=== PATIENT | female | born 1990 | race Two or more races ===

== ENCOUNTER 2019-05-01 03:24 | Emergency (ER) | payer MEDICAID ==
[~2019-05-01] VITALS: Ht 160 cm; Wt 88.5 kg
[~2019-05-01 03:24] MED LIST: PREN-96 OR
[2019-05-01 04:13] LABS: Basophils # (auto) 0.1 uL; Basophils % (auto) 0.5 % (0.0-2.0); Eosinophils # (auto) 0.2 uL; Eosinophils % (auto) 1.6 % (0.0-7.0); Hematocrit 40.8 % (36.0-46.0); Hemoglobin 14.2 g/dL (12.2-16.2); Lymphocytes # (auto) 2.5 uL; Lymphocytes % (auto) 23.2 % (10.0-50.0); Mean Corpuscular Hemoglobin 31.3 pg (28.0-32.0); Mean Corpuscular Hgb Conc. 34.7 g/dL (32.0-36.0); Mean Corpuscular Volume 90.2 fL (80.0-100.0); Monocytes # (auto) 0.6 uL; Neutrophils # (auto) 7.4 uL; Neutrophils % (auto) 68.7 % (37.0-80.0); Nucleated Red Blood Cells % 0.1 %; Platelet Count (auto) 280 10^3/uL (140-450); Red Blood Cells 4.52 10^6/uL (4.0-5.20); White Blood Cell 10.7 10^3/uL (4.4-10.8)
[2019-05-01 04:37] LABS: Albumin 3.8 g/dL (3.4-5.0); Calcium 8.6 mg/dL (8.5-10.1); Potassium 3.7 mmol/L (3.5-5.1)
[2019-05-01 04:40] LABS: BUN/Creatinine Ratio 15.8; Bilirubin, Total 0.4 mg/dL (0.2-1.0); Total Protein 8.2 g/dL (6.4-8.2)
[2019-05-01 04:43] LABS: Urine Bacteria FEW /hpf (None Seen); Urine Blood 2+ /uL (Negative); Urine Mucus FEW (None Seen); Urine Specific Gravity 1.026 (1.001-1.035); Urine WBC 1255 /hpf (0 - 5)
[2019-05-01 08:03] VITALS: BP 120/87
== END 2019-05-01 08:52 | disposition home or self-care (01) ==
LOC: ER 03:24
DX: O23.41 Unspecified infection of urinary tract in pregnancy, first trimester (principal); Z3A.01 Less than 8 weeks gestation of pregnancy
CPT/HCPCS: 36415; 80053; 81001; 84702; 85025

== ENCOUNTER 2019-12-14 08:07 | Observation (INO) | payer MEDICAID ==
[~2019-12-14] VITALS: Ht 160 cm; Wt 93.9 kg
== END 2019-12-14 11:54 | disposition home or self-care (01) | DRG 566 ==
LOC: LDRP 08:07
PROVIDERS: ADMIT Specialist; ATTEND Specialist
DX: O41.00X0 Oligohydramnios, unspecified trimester, not applicable or unspecified (principal); Z3A.00 Weeks of gestation of pregnancy not specified
CPT/HCPCS: 76818; G0378; 81002

== ENCOUNTER 2019-12-16 10:31 | Observation (INO) | payer MEDICAID | END 2019-12-16 11:54 | disposition home or self-care (01) | DRG 566 | LOC: LDRP 10:31 | PROVIDERS: ADMIT Obstetrics & Gynecology; ATTEND Obstetrics & Gynecology | DX: O26.899 Other specified pregnancy related conditions, unspecified trimester (principal); Z3A.00 Weeks of gestation of pregnancy not specified | CPT/HCPCS: 76818; 81002; G0378 ==

== ENCOUNTER 2019-12-19 09:31 | Observation (INO) | payer MEDICAID | END 2019-12-19 10:22 | disposition home or self-care (01) | DRG 861 | LOC: LDRP 09:31 | PROVIDERS: ADMIT Specialist; ATTEND Specialist | DX: Z34.90 Encounter for supervision of normal pregnancy, unspecified, unspecified trimester (principal) | CPT/HCPCS: 76818; 81002; G0378; 59025 ==

== ENCOUNTER 2019-12-21 10:00 | Observation (INO) | payer MEDICAID ==
[2019-12-21 11:13] LABS: Basophils # (auto) 0.1 10 ^3/uL (0-0.2); Basophils % (auto) 0.6 % (0.0-2.0); Eosinophils # (auto) 0.1 10 ^3/uL (0-0.8); Eosinophils % (auto) 0.9 % (0.0-7.0); Hematocrit 41.6 % (36.0-46.0); Hemoglobin 13.6 g/dL (12.2-16.2); Lymphocytes # (auto) 1.8 10 ^3/uL (0.4-5.4); Lymphocytes % (auto) 19.3 % (10.0-50.0); Mean Corpuscular Hemoglobin 29.6 pg (28.0-32.0); Mean Corpuscular Hgb Conc. 32.6 g/dL (32.0-36.0); Mean Corpuscular Volume 90.8 fL (80.0-100.0); Monocytes # (auto) 0.7 10 ^3/uL (0-1.3); Monocytes % (auto) 7.1 % (0.0-12.0); Neutrophils # (auto) 6.7 10 ^3/uL (1.6-8.6); Neutrophils % (auto) 72.1 % (37.0-80.0); Platelet Count (auto) 240 10^3/uL (140-450); Red Blood Cells 4.58 10^6/uL (4.0-5.20); White Blood Cell 9.3 10^3/uL (4.4-10.8)
[2019-12-22 04:10] LABS: RPR Non Reactive (Non Reactive)
== END 2019-12-21 11:10 | disposition home or self-care (01) | DRG 566 ==
LOC: LDRP 10:00
PROVIDERS: ADMIT Obstetrics & Gynecology; ATTEND Obstetrics & Gynecology
DX: O26.893 Other specified pregnancy related conditions, third trimester (principal); Z3A.38 38 weeks gestation of pregnancy
CPT/HCPCS: 36415; 76818; 81002; 85025; 86592; G0378

== ENCOUNTER 2019-12-27 09:51 | Observation (INO) | payer MEDICAID | END 2019-12-27 11:12 | disposition home or self-care (01) | DRG 566 | LOC: LDRP 09:51 | PROVIDERS: ADMIT Specialist; ATTEND Specialist | DX: O41.03X0 Oligohydramnios, third trimester, not applicable or unspecified (principal); O88.113 Amniotic fluid embolism in pregnancy, third trimester; Z3A.39 39 weeks gestation of pregnancy | CPT/HCPCS: 76818; 81002; G0378; 59025 ==

== ENCOUNTER 2019-12-30 04:10 | Inpatient (IN) | payer MEDICAID ==
[~2019-12-30] VITALS: Ht 160 cm; Wt 93.4 kg
[2019-12-30] VITALS (13 sets, daily range): BP systolic 103–127; BP diastolic 64–77
[2019-12-30] MEDS ORDERED: LACTATED RINGER'S 1,000 ML IV ONE (04:30)
[2019-12-30 04:58] LABS: Basophils # (auto) 0.1 10 ^3/uL (0-0.2); Basophils % (auto) 0.6 % (0.0-2.0); Eosinophils # (auto) 0.1 10 ^3/uL (0-0.8); Eosinophils % (auto) 0.8 % (0.0-7.0); Hematocrit 40.9 % (36.0-46.0); Hemoglobin 13.8 g/dL (12.2-16.2); Lymphocytes # (auto) 2.1 10 ^3/uL (0.4-5.4); Mean Corpuscular Hemoglobin 30.7 pg (28.0-32.0); Mean Corpuscular Hgb Conc. 33.8 g/dL (32.0-36.0); Mean Corpuscular Volume 90.6 fL (80.0-100.0); Monocytes # (auto) 0.6 10 ^3/uL (0-1.3); Monocytes % (auto) 6.4 % (0.0-12.0); Neutrophils % (auto) 71.2 % (37.0-80.0); Nucleated Red Blood Cells % 0.1 %; Platelet Count (auto) 239 10^3/uL (140-450); Red Blood Cells 4.51 10^6/uL (4.0-5.20); Red Cell Distribution Width 15.2 % (11.8-14.3); White Blood Cell 9.8 10^3/uL (4.4-10.8)
[2019-12-30 05:06] LABS: Urine Amorphous Crystal FEW /hpf (None Seen); Urine Bacteria FEW /hpf (None Seen); Urine Blood Negative /uL (Negative); Urine Specific Gravity 1.017 (1.001-1.035); Urine WBC 8 /hpf (0 - 5)
[2019-12-30 05:14] LABS: INR 0.97 (0.9-1.15)
[2019-12-30 05:15] LABS: Albumin 2.7 g/dL (3.4-5.0); Calcium 8.9 mg/dL (8.5-10.1); Potassium 3.8 mmol/L (3.5-5.1)
[2019-12-30 05:17] LABS: Alcohol, Urine < 3.0 mg/dL (0-5); Amphetamine Screen, Urine NEGATIVE (NEGATIVE); Barbiturate Scree,Urine NEGATIVE (NEGATIVE); Benzodiazephine Screen, Urine NEGATIVE (NEGATIVE); Cannabinoid Screen, Urine NEGATIVE (NEGATIVE); Cocaine Screen, Urine NEGATIVE (NEGATIVE); Opiate Scree,Urine NEGATIVE (NEGATIVE); Phencyclidine Screen, Urine NEGATIVE (NEGATIVE)
[2019-12-30 05:19] LABS: BUN/Creatinine Ratio 20.3; Bilirubin, Total 0.4 mg/dL (0.2-1.0); Total Protein 7.2 g/dL (6.4-8.2)
[2019-12-30] MEDS ORDERED: SODIUM CHLORIDE LOCK 10 ML ONE (06:50)
[2019-12-30] MEDS ORDERED: MIDAZOLAM HCL 1MG/1ML-2 ML VIAL ONE (06:50)
[2019-12-30] MEDS ORDERED: ONDANSETRON HCL 4 MG/2 ML VIAL ONE (06:50)
[2019-12-30] MEDS ORDERED: BUPIVACAINE/DEXTROSE MPF 0.75% 2 ML AMP IT ONE (06:50)
[2019-12-30] MEDS ORDERED: ceFAZolin 1GM VL ONE (06:50)
[2019-12-30] MEDS ORDERED: EPINEPHrine HCL 1 MG/1 ML AMP ONE (06:50)
[2019-12-30] MEDS ORDERED: oxyTOCIN 10 UNIT/ML 10ML VIAL ONE (06:50)
[2019-12-30] MEDS ORDERED: fentaNYL CITRATE 100 MCG/2 ML VL ONE (06:50)
[2019-12-30] MEDS ORDERED: MORPHINE SULF(PF) 0.5MG/ML 10ML VIAL ONE (06:50)
[2019-12-30] MEDS ORDERED: TETRACAINE 1% INJ 2 ML VIAL IJ ONE (06:54)
[2019-12-30] MEDS ORDERED: SUCCINYLCHOLINE CHLORIDE 20 MG/ML 10ML VIAL IV ONE (06:54)
[2019-12-30] MEDS ORDERED: ceFAZolin 1GM/50ML 50 ML IV SCH (08:15)
[2019-12-30] MEDS ORDERED: ONDANSETRON HCL 4 MG/2 ML VIAL IV PRN (08:15)
[2019-12-30] MEDS ORDERED: METOCLOPRAMIDE HCL 5MG/ml INJ 2ml VIAL IV PRN (08:45)
[2019-12-30] MEDS ORDERED: KETOROLAC TROMETH 15 mg/ml 1ML VL IV ONE (08:45)
[2019-12-30] MEDS ORDERED: NALOXONE HCL 0.4 MG/ML VIAL IV PRN (08:45)
[2019-12-30] MEDS ORDERED: diphenhdrAMINE HCL 50 MG/1 ML VL IV PRN (08:45)
[2019-12-30] MEDS ORDERED: MORPHINE SULFATE 4 MG/ML SYR/VIAL IV PRN (08:45)
[2019-12-30] MEDS ORDERED: HYDROmorphone HCL 2 MG/ML VL IV PRN (08:45)
[2019-12-30] MEDS ORDERED: fentaNYL CITRATE 100 MCG/2 ML VL IV PRN (08:45)
--- NOTE | 2019-12-30 09:00 | NUR ---
Post Op for LDRP: Received patient from PACU via bed to room 107b. Patient A/A/Ox4, abdominal binder and bilateral SCD's are in place, IV fluids placed on pump and infusing per order, incisional site dressing small dime size drainage/dry/intact and Cherry Catheter to gravity draining clear yellow urine. Incentive Spirometer at bedside and instruction on proper use with return demonstration done by patient. Information Handout regarding, , incentive spirometer and ambulation at bedside.
[2019-12-30] MEDS ORDERED: ACETAMINOPHEN IV 1000 MG/100ML (10MG/ML) IV ONE ×2 (10:45→22:30)
[2019-12-30] MEDS: LACT. RINGERS/OXYTOCIN 20UNITS 1,000 ML IV SCH ×3 (10:50→21:35)
--- NOTE | 2019-12-30 11:35 | NUR ---
Pericare given. Lochia light, fundus fm 1 below umbilicus
--- NOTE | 2019-12-30 12:00 | NUR ---
Ofrimev had stopped infusing, will re-evaluate in 30mins.
[2019-12-30] MEDS: LACTATED RINGER'S 1,000 ML IV SCH ×3 (12:10→21:42)
[2019-12-30] MEDS: MORPHINE SULFATE 4 MG/ML SYR/VIAL IV PRN ×2 (15:20→20:54)
[2019-12-30] MEDS: ceFAZolin 1GM/50ML 50 ML IV SCH (16:03)
--- NOTE | 2019-12-30 18:55 | NUR ---
Teaching: Reviewed information in [employer] booklet with patient. Discussed benefits of and risks associated with not . Discussed different positions, proper latch, feeding cues, and baby-led . Provided information of medication side effects related to . All questions and concerns addressed at this time. Patient verbalized understanding of information. Bottle-feeding Education: Patient encouraged to breastfeed. Benefits of and the risk of providing formula to was discussed. Patient verbalized understanding of the benefits and is aware of risk and insists on bottle-feeding. Formula provided and instruction on formula preperation from the [employer] booklet reviewed with patient.
[2019-12-30 19:48] LABS: Basophils # (auto) 0 10 ^3/uL (0-0.2); Basophils % (auto) 0.4 % (0.0-2.0); Eosinophils # (auto) 0.1 10 ^3/uL (0-0.8); Eosinophils % (auto) 0.9 % (0.0-7.0); Hematocrit 38.1 % (36.0-46.0); Hemoglobin 12.6 g/dL (12.2-16.2); Lymphocytes # (auto) 1.9 10 ^3/uL (0.4-5.4); Lymphocytes % (auto) 20.3 % (10.0-50.0); Mean Corpuscular Hemoglobin 30.2 pg (28.0-32.0); Mean Corpuscular Hgb Conc. 33.1 g/dL (32.0-36.0); Mean Corpuscular Volume 91.3 fL (80.0-100.0); Monocytes # (auto) 0.7 10 ^3/uL (0-1.3); Monocytes % (auto) 7.3 % (0.0-12.0); Neutrophils # (auto) 6.8 10 ^3/uL (1.6-8.6); Neutrophils % (auto) 71.1 % (37.0-80.0); Platelet Count (auto) 207 10^3/uL (140-450); Red Blood Cells 4.17 10^6/uL (4.0-5.20); White Blood Cell 9.5 10^3/uL (4.4-10.8)
--- NOTE | 2019-12-30 23:20 | NUR ---
Ambulation: Patient OOB with standby assistance by RN. Pericare provided, clean gown provided, and bed linen changed. Patient ambulated in the hallway to LDRP room 6 and back with steady gait while pushing open crib. Patient placed back in bed, ICDs reapplied, no distress noted.
[2019-12-31] MEDS: ceFAZolin 1GM/50ML 50 ML IV SCH ×2 (00:24→08:20)
[2019-12-31 03:15] VITALS: BP 115/74
[2019-12-31] MEDS: LACTATED RINGER'S 1,000 ML IV SCH (04:10)
[2019-12-31] MEDS: LACT. RINGERS/OXYTOCIN 20UNITS 1,000 ML IV SCH (04:15)
[2019-12-31 05:07] LABS: RPR Non Reactive (Non Reactive)
--- NOTE | 2019-12-31 05:20 | NUR ---
Hyatt catheter dc'd Order to discontinue hyatt catheter. Hyatt dc'd with clean technique following deflation of balloon. Patient tolerated well with no complaints of pain. Pericare performed. Peripad changed.
[2019-12-31] MEDS: MORPHINE SULFATE 4 MG/ML SYR/VIAL IV PRN (05:22)
[2019-12-31 07:00] VITALS: BP 130/78
--- NOTE | 2019-12-31 07:15 | NUR ---
Assessment complete. Educated on SCDs, IS, need to ambulate in hallway and sit in the chair. Encouraged to cough, deep breath to prevent pneumonia as well as use IS 10x hour. Educated SCD reduce the risk of blood clots and need to worn whenever in bed, need to turn side to side to reduce skin breakdown. Updated on plan of care, pain management. Verbalized understanding. Addendum: 12/31/19 at 0748 by MAURY CONTI RN Amended: Links added.
--- NOTE | 2019-12-31 08:00 | NUR ---
Dr Lizama made rounds with RN. Updated on patient status, vitals. Verbalized understanding. Received orders to start post op day 1 order set.
[2019-12-31] MEDS ORDERED: BISACODYL 10 MG RECT SUPP PR PRN (08:15)
[2019-12-31] MEDS ORDERED: HYDROcodone-ACET 5/325MG TAB PO PRN (08:15)
[2019-12-31] MEDS: HYDROcodone-ACET 5/325MG TAB PO PRN ×3 (08:20→21:26)
[2019-12-31] MEDS: IBUPROFEN 800 MG TAB PO PRN ×2 (09:24→19:33)
[2019-12-31] MEDS: DOCUSATE SOD 100 MG CAP PO SCH ×2 (09:24→21:25)
[2019-12-31] MEDS: DOCUSATE CALCIUM 240 MG CAP PO SCH (09:25)
[2019-12-31 09:36] LABS: Basophils # (auto) 0 10 ^3/uL (0-0.2); Basophils % (auto) 0.3 % (0.0-2.0); Eosinophils # (auto) 0.1 10 ^3/uL (0-0.8); Eosinophils % (auto) 0.8 % (0.0-7.0); Hematocrit 42.7 % (36.0-46.0); Hemoglobin 14.3 g/dL (12.2-16.2); Lymphocytes # (auto) 0.9 10 ^3/uL (0.4-5.4); Lymphocytes % (auto) 11.7 % (10.0-50.0); Mean Corpuscular Hemoglobin 30.6 pg (28.0-32.0); Mean Corpuscular Hgb Conc. 33.4 g/dL (32.0-36.0); Mean Corpuscular Volume 91.6 fL (80.0-100.0); Monocytes # (auto) 0.5 10 ^3/uL (0-1.3); Monocytes % (auto) 6.6 % (0.0-12.0); Neutrophils # (auto) 6.3 10 ^3/uL (1.6-8.6); Neutrophils % (auto) 80.6 % (37.0-80.0); Platelet Count (auto) 245 10^3/uL (140-450); Red Blood Cells 4.66 10^6/uL (4.0-5.20); Red Cell Distribution Width 14.8 % (11.8-14.3); White Blood Cell 7.9 10^3/uL (4.4-10.8)
--- NOTE | 2019-12-31 10:00 | NUR ---
Pt ambulated to restroom with steady gait. Void yellow fluid without difficulty. Pericare performed independently. Scant bleeding noted, no clots seen.
--- NOTE | 2019-12-31 10:35 | NUR ---
IV removal Patient stated IV site was painful, noted site is puffy. IV DC'd with sterile technique, catheter fully intact. Pressure dressing applied to site. Patient tolerated procedure well. Addendum: 12/31/19 at 1226 by MAURY CONTI RN Amended: Links added.
[2019-12-31 11:00] VITALS: BP 114/67
[2019-12-31] MEDS: SIMETHICONE 80 MG CHEWABLE TABLET PO SCH ×2 (12:29→17:28)
[2019-12-31 15:00] VITALS: BP 111/63
--- NOTE | 2019-12-31 18:15 | NUR ---
SBAR to Phil Coley RN.
[2019-12-31 19:00] VITALS: BP 136/84
[2019-12-31 23:00] VITALS: BP 137/94
[2020-01-01 03:00] VITALS: BP 119/87
[2020-01-01] MEDS: HYDROcodone-ACET 5/325MG TAB PO PRN (06:32)
[2020-01-01 06:56] VITALS: BP 118/72
[2020-01-01] MEDS: DOCUSATE SOD 100 MG CAP PO SCH ×2 (09:39→21:31)
[2020-01-01] MEDS: DOCUSATE CALCIUM 240 MG CAP PO SCH (09:39)
[2020-01-01 11:15] VITALS: BP 121/84
[2020-01-01] MEDS: IBUPROFEN 800 MG TAB PO PRN ×2 (12:09→23:19)
[2020-01-01] MEDS: SIMETHICONE 80 MG CHEWABLE TABLET PO SCH ×3 (12:09→21:30)
--- NOTE | 2020-01-01 14:10 | NUR ---
pt walking up in the hallway accompanied by significant other. tolerating well.
[2020-01-01 15:00] VITALS: BP 124/79
[2020-01-01 18:53] VITALS: BP 134/80
[2020-01-01 23:00] VITALS: BP 128/78
[2020-01-02 03:00] VITALS: BP 114/72
[2020-01-02] MEDS: SIMETHICONE 80 MG CHEWABLE TABLET PO SCH (05:26)
[2020-01-02 07:30] VITALS: BP 112/79
--- NOTE | 2020-01-02 10:45 | NUR ---
Discharge: Discharge instructions given as ordered. Pt encouraged to follow up with [employer]ER as instructed. All questions and concerns addressed. Patient verbalized understanding. Medication reconciliation completed and copy given to patient. All required/requested vaccines given and copies of vaccinations given to patient. Patient encouraged to prepare to depart unit.
--- NOTE | 2020-01-02 11:20 | NUR ---
Discharge: Patient taken to vehicle ambulatory with all personal belongings, accompanied by staff and family member. No distress noted at time of departure, no adverse changes in status since initial assessment.
== END 2020-01-02 11:20 | disposition home or self-care (01) | DRG 540 ==
LOC: LDRP 04:10
PROVIDERS: ADMIT Obstetrics & Gynecology; ATTEND Obstetrics & Gynecology
PROC: 10D00Z1 Extraction of Products of Conception, Low, Open Approach (ICD-10-PCS; principal; 2019-12-30 07:29)
DX: O34.211 Maternal care for low transverse scar from previous cesarean delivery (principal); Z37.0 Single live birth; Z3A.39 39 weeks gestation of pregnancy
CPT/HCPCS: 36415; 51702; 59025; 80053; 80307; 81001; 81002; 84112; 85025; 85610; 85730; 86592; 86850; 86900; 86901; 96365; 96366; 96374; 96375; G0378; J0131; J0171; J0330; J0690; J2250; J2405; J2590

== ENCOUNTER 2022-09-22 20:44 | Observation (INO) | payer MEDICAID ==
[~2022-09-22] VITALS: Ht 160 cm; Wt 93.0 kg
[2022-09-22] MEDS ORDERED: TERBUTALINE SULFATE 1 MG/ML 1ML VIAL SC SCH (22:15)
[2022-09-22] MEDS ORDERED: LACTATED RINGER'S 1,000 ML IV SCH (22:15)
[2022-09-22] MEDS ORDERED: LACTATED RINGER'S 1,000 ML IV ONE (22:15)
[2022-09-22] MEDS ORDERED: TERBUTALINE SULFATE 1 MG/ML 1ML VIAL SC ONE (22:18)
[2022-09-23] MEDS ORDERED: NIFEdipine 10 MG CAP PO ONE (02:55)
[2022-09-23] MEDS ORDERED: NIF10C PO (03:02)
== END 2022-09-23 03:49 | disposition home or self-care (01) ==
LOC: LDRP 20:44
PROVIDERS: ADMIT Obstetrics & Gynecology; ATTEND Obstetrics & Gynecology
DX: O60.03 Preterm labor without delivery, third trimester (principal); O34.63 Maternal care for abnormality of vagina, third trimester; N89.8 Other specified noninflammatory disorders of vagina; Z3A.38 38 weeks gestation of pregnancy; Z98.891 History of uterine scar from previous surgery
CPT/HCPCS: 59025; 81002; 94760; 96360; 96361; 96372; G0378; J3105

== ENCOUNTER 2022-09-26 18:56 | Inpatient (IN) | payer MEDICAID ==
[~2022-09-26] VITALS: Ht 160 cm; Wt 93.0 kg
[~2022-09-26 18:56] MED LIST changes: +NIF10C PO
[2022-09-28] VITALS (14 sets, daily range): BP systolic 92–120; BP diastolic 36–80
[2022-09-28] MEDS ORDERED: LACTATED RINGER'S 1,000 ML IV ONE (04:45)
[2022-09-28] MEDS: LACTATED RINGER'S 1,000 ML IV SCH ×2 (04:45→16:35)
[2022-09-28 05:05] LABS: Urine Bacteria FEW /hpf (None Seen); Urine Blood Negative /uL (Negative); Urine Specific Gravity 1.009 (1.001-1.035); Urine WBC 25 /hpf (0 - 5)
[2022-09-28 05:16] LABS: Alcohol, Urine < 3.0 mg/dL (0-10); Amphetamine Screen, Urine NEGATIVE (NEGATIVE); Barbiturate Scree,Urine NEGATIVE (NEGATIVE); Benzodiazephine Screen, Urine NEGATIVE (NEGATIVE); Cannabinoid Screen, Urine NEGATIVE (NEGATIVE); Cocaine Screen, Urine NEGATIVE (NEGATIVE); Opiate Scree,Urine NEGATIVE (NEGATIVE); Phencyclidine Screen, Urine NEGATIVE (NEGATIVE)
[2022-09-28] MEDS ORDERED: ceFAZolin 1GM/50ML 50 ML IV ONE ×2 (08:00→08:30)
[2022-09-28] MEDS: SODIUM CITR/CITRIC ACID ORAL SOLN 30 ML PO SCH ×3 (08:15→18:00)
[2022-09-28] MEDS ORDERED: SODIUM CITR/CITRIC ACID ORAL SOLN 30 ML ONE (08:15)
[2022-09-28] MEDS ORDERED: TETRACAINE 1% INJ 2 ML VIAL IJ ONE (08:17)
[2022-09-28] MEDS ORDERED: MORPHINE SULF PF 5 MG/10 ML VIAL ONE (08:18)
[2022-09-28] MEDS ORDERED: NS/OXYTOCIN 20UNITS 1,000 ML IV SCH (08:30)
[2022-09-28] MEDS ORDERED: MORPHINE SULFATE 4 MG/ML SYR/VIAL IV PRN (08:30)
[2022-09-28] MEDS ORDERED: ONDANSETRON HCL 4 MG/2 ML VIAL IV PRN ×2 (08:30→10:00)
[2022-09-28] MEDS ORDERED: HYDROcodone-ACET 5/325MG TAB PO PRN (08:45)
[2022-09-28] MEDS ORDERED: BUPIVACAINE 0.25% INJ 50ML VIAL ONE (09:16)
[2022-09-28] MEDS ORDERED: ceFAZolin 1GM VL ONE (09:37)
[2022-09-28] MEDS ORDERED: ePHEDrine SULFATE 50 MG/ML AMP ONE (09:37)
[2022-09-28] MEDS ORDERED: oxyTOCIN 10 UNIT/ML 10ML VIAL ONE (09:37)
[2022-09-28] MEDS ORDERED: ONDANSETRON HCL 4 MG/2 ML VIAL ONE (09:37)
[2022-09-28] MEDS ORDERED: NALBUPHINE HCL 10 MG/1ml INJECTION SUBCUT ONE (10:00)
[2022-09-28] MEDS ORDERED: HYDROmorphone HCL 2 MG/ML VL/or syr IV PRN (10:00)
[2022-09-28] MEDS ORDERED: KETOROLAC TROMETH 30 MG/ML 1ML VIAL IV PRN (10:00)
[2022-09-28] MEDS ORDERED: diphenhdrAMINE HCL 50 MG/1 ML VL IV PRN (10:00)
[2022-09-28] MEDS ORDERED: NALOXONE HCL 0.4 MG/ML VIAL IV PRN (10:00)
[2022-09-28] MEDS ORDERED: DexAMETHasone SOD PHOS 10MG/1ML VIAL INJ IV PRN (10:00)
[2022-09-28] MEDS ORDERED: ACETAMINOPHEN IV 1000 MG/100ML (10MG/ML) IV PRN (12:30)
[2022-09-28] MEDS: ceFAZolin 1GM/50ML 50 ML IV SCH (16:31)
[2022-09-29] VITALS (11 sets, daily range): BP systolic 99–133; BP diastolic 62–93
[2022-09-29] MEDS: ceFAZolin 1GM/50ML 50 ML IV SCH ×2 (00:32→08:26)
[2022-09-29 07:15] LABS: Basophils # (auto) 0 10 ^3/uL (0-0.2); Basophils % (auto) 0.3 % (0.0-2.0); Eosinophils # (auto) 0.1 10 ^3/uL (0-0.8); Eosinophils % (auto) 0.9 % (0.0-7.0); Hematocrit 36.3 % (36.0-46.0); Hemoglobin 12.2 g/dL (12.2-16.2); Lymphocytes # (auto) 1.4 10 ^3/uL (0.4-5.4); Lymphocytes % (auto) 15.6 % (10.0-50.0); Mean Corpuscular Hemoglobin 29.8 pg (28.0-32.0); Mean Corpuscular Hgb Conc. 33.5 g/dL (32.0-36.0); Monocytes # (auto) 0.7 10 ^3/uL (0-1.3); Monocytes % (auto) 7.5 % (0.0-12.0); Neutrophils # (auto) 6.8 10 ^3/uL (1.6-8.6); Neutrophils % (auto) 75.7 % (37.0-80.0); Nucleated Red Blood Cells % 0.1 %; Red Blood Cells 4.08 10^6/uL (4.0-5.20); Red Cell Distribution Width 15.9 % (11.8-14.3)
[2022-09-29] MEDS ORDERED: BISACODYL 10 MG RECT SUPP PR PRN (08:15)
[2022-09-29] MEDS ORDERED: DOCUSATE CALCIUM 240 MG CAP PO SCH (10:00)
[2022-09-29] MEDS: DOCUSATE SOD 100 MG CAP PO SCH ×2 (10:34→21:53)
[2022-09-29] MEDS: IBUPROFEN 800 MG TAB PO PRN ×2 (12:31→23:40)
[2022-09-29] MEDS: SIMETHICONE 80 MG CHEWABLE TABLET PO SCH ×3 (12:31→21:53)
[2022-09-29] MEDS ORDERED: IBUP800T27 PO (12:56)
[2022-09-29] MEDS ORDERED: HYDR-4902 PO (12:56)
[2022-09-29] MEDS ORDERED: DOCU-94 PO (12:56)
[2022-09-29] MEDS: LACTATED RINGER'S 1,000 ML IV SCH (16:33)
[2022-09-29] MEDS: HYDROcodone-ACET 5/325MG TAB PO PRN ×2 (17:59→21:54)
[2022-09-30] MEDS: HYDROcodone-ACET 5/325MG TAB PO PRN ×2 (03:05→07:38)
[2022-09-30] MEDS: SIMETHICONE 80 MG CHEWABLE TABLET PO SCH (05:48)
[2022-09-30 06:35] VITALS: BP 118/82
[2022-09-30] MEDS: IBUPROFEN 800 MG TAB PO PRN (07:41)
== END 2022-09-30 08:08 | disposition home or self-care (01) | DRG 539 ==
LOC: UNDOADMOB 18:56 → LDRP 18:56 → UNDODISOB 19:33 → EDSTATUS 09-27 18:38 → LDRP 09-28 04:40
PROVIDERS: ADMIT Obstetrics & Gynecology; ATTEND Obstetrics & Gynecology
PROC: 0UB70ZZ Excision of Bilateral Fallopian Tubes, Open Approach (ICD-10-PCS; 2022-09-28)
PROC: 10D00Z1 Extraction of Products of Conception, Low, Open Approach (ICD-10-PCS; principal; 2022-09-28 08:20)
DX: O34.211 Maternal care for low transverse scar from previous cesarean delivery (principal); O24.429 Gestational diabetes mellitus in childbirth, unspecified control; Z20.822 Contact with and (suspected) exposure to COVID-19; Z3A.38 38 weeks gestation of pregnancy; Z37.0 Single live birth; Z30.2 Encounter for sterilization
CPT/HCPCS: 36415; 59025; 80307; 81001; 85025; 86850; 86900; 86901; 94760; 94762; 96360; 96361; G0378; J0131; J0690; J1885; J2405; J2590; J3490

== ENCOUNTER 2024-01-13 21:52 | Inpatient (IN) | payer MEDICAID ==
[~2024-01-13] VITALS: Ht 167.6 cm; Wt 98.0 kg
[~2024-01-13 21:52] MED LIST changes: +DOCU-94 PO; +HYDR-4902 PO; +IBUP-1456 PO
[2024-01-13 22:59] LABS: Basophils # (auto) 0.1 10 ^3/uL (0-0.2); Basophils % (auto) 0.9 % (0.0-2.0); Eosinophils # (auto) 0.3 10 ^3/uL (0-0.8); Eosinophils % (auto) 2.7 % (0.0-7.0); Hematocrit 44.6 % (36.0-46.0); Hemoglobin 14.5 g/dL (12.2-16.2); Lymphocytes # (auto) 4.2 10 ^3/uL (0.4-5.4); Lymphocytes % (auto) 39.4 % (10.0-50.0); Mean Corpuscular Hemoglobin 28.4 pg (28.0-32.0); Mean Corpuscular Hgb Conc. 32.4 g/dL (32.0-36.0); Mean Corpuscular Volume 87.7 fL (80.0-100.0); Monocytes # (auto) 0.7 10 ^3/uL (0-1.3); Monocytes % (auto) 6.6 % (0.0-12.0); Neutrophils # (auto) 5.3 10 ^3/uL (1.6-8.6); Neutrophils % (auto) 50.4 % (37.0-80.0); Nucleated Red Blood Cells % 0.2 %; Red Blood Cells 5.09 10^6/uL (4.0-5.20); White Blood Cell 10.6 10^3/uL (4.4-10.8)
[2024-01-13 23:20] LABS: Alanine Aminotransferase 16 U/L (7-40); Albumin 4.2 g/dL (3.2-4.8); Alkaline Phosphatase 91 U/L (46-116); Anion Gap 8 (5-15); Aspartate Aminotransferase 14 U/L (13-40); BUN/Creatinine Ratio 16.2 (10.0-20.0); Blood Urea Nitrogen 11 mg/dL (9-23); Calcium 9.8 mg/dL (8.7-10.4); Carbon Dioxide 25 mmol/L (20-30); Chloride 106 mmol/L (98-107); Glucose 100 mg/dL (74-106); Lipase 45 U/L (12-53); Potassium 3.3 mmol/L (3.5-5.1); Sodium 139 mmol/L (136-145)
[2024-01-13 23:21] LABS: Bilirubin, Total 0.3 mg/dL (0.2-1.0)
[2024-01-13 23:39] LABS: Lactic Acid w/Reflex 2.6 mmol/L (0.4-2.0)
[2024-01-14] MEDS: ONDANSETRON ODT 4 MG TAB PO ONE (01:42)
[2024-01-14] MEDS: KETOROLAC TROMETH 30 MG/ML 1ML VIAL IM ONE (01:43)
[2024-01-14 02:35] VITALS: PULSE 95; RESP 16; O2SAT 99
[2024-01-14] MEDS: SODIUM CHLORIDE 0.9% 1,000 ML IV ONE (02:41)
[2024-01-14] MEDS: cefTRIAXone 1GM/50ML D5W 50 ML IV ONE (02:42)
[2024-01-14] MEDS ORDERED: MORPHINE SULFATE 4 MG/ML SYR/VIAL IV PRN (02:45)
[2024-01-14] MEDS ORDERED: ONDANSETRON HCL 4 MG/2 ML VIAL IV PRN (02:45)
[2024-01-14] MEDS: metroNIDAZOLE 500MG/100ML 100 ML IV ONE (03:01)
[2024-01-14] MEDS: SODIUM CHLORIDE 0.9% 1,000 ML IV SCH ×2 (03:02→11:15)
[2024-01-14 03:32] LABS: INR 1.04 (0.9-1.15); Partial Thromboplastin Time 28.1 SEC (24.5-34.5)
[2024-01-14 03:53] LABS: Urine Bacteria FEW /hpf (None Seen); Urine Blood TRACE /uL (Negative); Urine Clarity Turbid (Clear); Urine Color Yellow (Yellow); Urine Mucus FEW (None Seen); Urine Protein, UAD TRACE (Negative); Urine Specific Gravity 1.029 (1.001-1.035); Urine Urobilinogen Normal (Negative); Urine WBC 7 /hpf (0 - 5)
[2024-01-14 04:30] VITALS: PULSE 91; RESP 23; O2SAT 94
[2024-01-14] MEDS: PANTOPRAZOLE 40 MG/10 ML VIAL INJ IV SCH (10:22)
[2024-01-14] MEDS: metroNIDAZOLE 500MG/100ML 100 ML IV SCH ×2 (10:22→14:00)
[2024-01-14 11:46] LABS: Chloride 109 mmol/L (98-107); Potassium 3.4 mmol/L (3.5-5.1); Sodium 140 mmol/L (136-145)
[2024-01-14 11:47] LABS: Anion Gap 5 (5-15); Calcium 8.8 mg/dL (8.5-10.1); Carbon Dioxide 26 mmol/L (20-30)
[2024-01-14 11:52] LABS: BUN/Creatinine Ratio 11.7 (10.0-20.0); Blood Urea Nitrogen 7 mg/dL (9-23); Glucose 83 mg/dL (74-106)
[2024-01-14] MEDS ORDERED: fentaNYL CITRATE 100 MCG/2 ML VL ONE (14:37)
[2024-01-14] MEDS ORDERED: MIDAZOLAM HCL 2MG/2ML 2ml VIAL (1mg/ml) ONE (14:38)
[2024-01-14] MEDS ORDERED: PROPOFOL 10 MG/ML 20 ML IV ONE (14:50)
[2024-01-14] MEDS ORDERED: ROCURONIUM 10MG/ML 10ML VIAL IV ONE (14:50)
[2024-01-14] MEDS ORDERED: LIDOCAINE 2% (LOCAL ANESTH.) PF 5ml SDV ONE (14:50)
[2024-01-14] MEDS ORDERED: ONDANSETRON HCL 4 MG/2 ML VIAL ONE (14:50)
[2024-01-14] MEDS ORDERED: HYDROmorphone HCL 2 MG/ML VL/or syr ONE (16:10)
[2024-01-14] MEDS: LIDOCAINE W/ EPINEPHRINE 1% 20ML VIAL ONE (16:40)
[2024-01-14] MEDS ORDERED: NEOSTIGMINE 1 MG/ML INJ (10mg/10ML VIAL) ONE (16:42)
[2024-01-14] MEDS ORDERED: GLYCOPYRROLATE 0.2 MG/ML 1ML VIAL ONE ×2 (16:42→16:59)
[2024-01-14] MEDS ORDERED: HYDROmorphone HCL 2 MG/ML VL/or syr IV PRN ×2 (16:45)
[2024-01-14] MEDS ORDERED: ONDANSETRON HCL 4 MG/2 ML VIAL IV ONE (16:45)
[2024-01-14 17:07] VITALS: PULSE 85; RESP 18; O2SAT 98
[2024-01-14 18:16] VITALS: BP 130/66; PULSE 66; PULSE 68; RESP 16; RESP 20; TEMP 98.1; O2SAT 98
[2024-01-14 20:00] VITALS: BP 131/80; PULSE 64; RESP 22; TEMP 98.1
[2024-01-14] MEDS: ACETAMINOPHEN/CODEINE#3 (300/30mg) TAB PO PRN (20:31)
[2024-01-14 21:00] VITALS: BP 131/80; PULSE 64; RESP 22; TEMP 98.1; O2SAT 99
[2024-01-15 01:00] VITALS: BP 104/62; PULSE 75; RESP 22; TEMP 97.9; O2SAT 98
[2024-01-15 05:00] VITALS: BP 113/65; PULSE 63; RESP 99; TEMP 98; O2SAT 99
[2024-01-15 05:48] LABS: Basophils # (auto) 0 10 ^3/uL (0-0.2); Basophils % (auto) 0.3 % (0.0-2.0); Eosinophils # (auto) 0.1 10 ^3/uL (0-0.8); Hematocrit 36.9 % (36.0-46.0); Lymphocytes # (auto) 2.9 10 ^3/uL (0.4-5.4); Lymphocytes % (auto) 26.5 % (10.0-50.0); Mean Corpuscular Hemoglobin 28.3 pg (28.0-32.0); Mean Corpuscular Hgb Conc. 32.5 g/dL (32.0-36.0); Mean Corpuscular Volume 87.2 fL (80.0-100.0); Monocytes # (auto) 0.7 10 ^3/uL (0-1.3); Monocytes % (auto) 6.1 % (0.0-12.0); Neutrophils # (auto) 7.3 10 ^3/uL (1.6-8.6); Neutrophils % (auto) 66.1 % (37.0-80.0); Nucleated Red Blood Cells % 0.1 %; Red Blood Cells 4.23 10^6/uL (4.0-5.20); Red Cell Distribution Width 14.2 % (11.8-14.3); White Blood Cell 11.1 10^3/uL (4.4-10.8)
[2024-01-15 06:04] LABS: Alanine Aminotransferase 18 U/L (7-40); Albumin 3.4 g/dL (3.2-4.8); Alkaline Phosphatase 75 U/L (46-116); Anion Gap 4 (5-15); Aspartate Aminotransferase 27 U/L (13-40); BUN/Creatinine Ratio 9.1 (10.0-20.0); Blood Urea Nitrogen 6 mg/dL (9-23); Calcium 8.4 mg/dL (8.7-10.4); Carbon Dioxide 27 mmol/L (20-30); Chloride 108 mmol/L (98-107); Glucose 95 mg/dL (74-106); Potassium 3.6 mmol/L (3.5-5.1); Sodium 139 mmol/L (136-145)
[2024-01-15 06:05] LABS: Bilirubin, Total 0.7 mg/dL (0.2-1.0); Total Protein 6.4 g/dL (5.7-8.2)
[2024-01-15] MEDS: MORPHINE SULFATE 4 MG/ML SYR/VIAL IV PRN (08:55)
[2024-01-15 09:00] VITALS: BP 141/91; PULSE 60; RESP 19; TEMP 98.5; O2SAT 99
[2024-01-15 09:25] VITALS: BP 132/91; PULSE 82; RESP 18
[2024-01-15] MEDS ORDERED: CEPH250C PO (14:00)
[2024-01-15] MEDS ORDERED: DOCU-94 PO (14:00)
[2024-01-15] MEDS ORDERED: NAP500T PO (14:00)
[2024-01-15] MEDS: cefTRIAXone 1GM/50ML D5W 50 ML IV SCH (15:00)
[2024-01-15 15:38] VITALS: TEMP 36.9
== END 2024-01-15 16:30 | disposition home or self-care (01) | DRG 263 ==
LOC: ER 21:52 → EDBD 21:52 → OVERFLOW 01-14 02:48 → WEST WING 01-14 18:05
PROVIDERS: ADMIT Nurse Practitioner; ATTEND Internal Medicine
PROC: 0FT44ZZ Resection of Gallbladder, Percutaneous Endoscopic Approach (ICD-10-PCS; principal; 2024-01-14 15:28)
DX: K81.0 Acute cholecystitis (principal); E87.20 Acidosis, unspecified; Z79.1 Long term (current) use of non-steroidal anti-inflammatories (NSAID); Z79.899 Other long term (current) drug therapy
CPT/HCPCS: 36415; 71045; 78226; 80048; 80053; 81001; 81025; 82962; 83605; 83690; 84484; 85025; 85610; 85730; 86850; 86900; 86901; 93005; C9113; G0378; J1885; J2001; J2250; J2405; J2704; J3490; Q0162